=== PATIENT | male | born 1965 | race Caucasian/White ===

== ENCOUNTER → 2017-05-28 | Outpatient (CLI) | payer BC | END | disposition home or self-care (01) | LOC: CDC 10:21 | DX: Z01.810 Encounter for preprocedural cardiovascular examination (principal); M25.562 Pain in left knee; M94.262 Chondromalacia, left knee; S83.232A Complex tear of medial meniscus, current injury, left knee, initial encounter; I10 Essential (primary) hypertension; R94.31 Abnormal electrocardiogram [ECG] [EKG] | CPT/HCPCS: 93000 ==

== ENCOUNTER 2017-08-03 15:45 | Emergency (ER) | payer BC ==
[~2017-08-03] VITALS: Ht 188 cm; Wt 80.4 kg
[2017-08-03 16:09] LABS: HEMATOCRIT 31.1 % (38.0-50.0); HEMOGLOBIN 9.7 G/DL (12.5-16.6); MCH 24.7 PG (29.0-34.0); MCHC 31.2 G/DL (30.0-36.0); MCV 79.1 FL (86-99); PLATELET COUNT 388 K/uL (156-360); RBC DIS.WIDTH-CV 14.6 % (11.8-14.6); RBC DIS.WIDTH-SD 42.4 % (39-53); RED BLOOD COUNT 3.93 M/uL (4.00-5.50); WHITE BLOOD COUNT 11.5 K/uL (4.1-10.2)
[2017-08-03 16:21] LABS: ALBUMIN 3.3 g/dL (3.2-4.8); CHLORIDE 102 mEq/L (99-109); POTASSIUM 4.1 mEq/L (3.7-5.4); SODIUM 137 mEq/L (136-147)
[2017-08-03 16:24] LABS: GLUCOSE 105 mg/dL (70-99); TOTAL PROTEIN 6.8 g/dL (6.4-8.3)
[2017-08-03 16:26] LABS: TOTAL BILIRUBIN 0.3 mg/dL (0.0-1.0)
[2017-08-03 16:27] LABS: ALKALINE PHOSPHATASE 83 IU/L (3-129); CREATININE 0.8 mg/dL (0.6-1.3); GFR ESTIMATE (CALCULATED) > 59 mL/min/ (58.99-99999)
[2017-08-03] MEDS ORDERED: TYLENOL REGULA325 MG PO (16:27)
[2017-08-03 16:28] LABS: UREA NITROGEN (BUN) 9 mg/dL (9-23)
[2017-08-03 16:29] LABS: AST (GOT) 25 IU/L (2-34)
[2017-08-03 16:30] LABS: ALT (GPT) 33 IU/L (3-49)
[2017-08-03 17:02] LABS: APPEARANCE CLEAR ((CLEAR)); BILIRUBIN NEGATIVE; BLOOD NEGATIVE; COLOR STRAW ((YELLOW)); GLUCOSE (STRIP) NEGATIVE; KETONES 5; LEUKOCYTES NEGATIVE; NITRITE NEGATIVE; PROTEIN (STRIP) NEGATIVE; SPECIFIC GRAVITY 1.005 (1.000-1.030); UCUL ADDED? NO; UROBILINOGEN 0.2 MG/DL (0.2-1.0)
[2017-08-03] MEDS ORDERED: PERCOCET 5/31 TABLET PO (18:24)
[2017-08-03 18:51] VITALS: BP 133/76
== END 2017-08-03 19:17 | disposition home or self-care (01) ==
LOC: EME 15:45
DX: K31.89 Other diseases of stomach and duodenum (principal); D64.9 Anemia, unspecified; I10 Essential (primary) hypertension; Z87.891 Personal history of nicotine dependence
CPT/HCPCS: 74177; 80053; 81003; 85027; 99281; 99284; J7030

== ENCOUNTER → 2017-08-12 | Outpatient (CLI) | payer BC ==
[~2017-08-12] VITALS: Ht 185.4 cm; Wt 77.1 kg
[~2017-08-12] MED LIST: NORVASC5 MG PO; PERCOCET 5/31 TABLET PO; PROTONIX40 MG PO; TYLENOL EXTRA500 MG PO; TYLENOL REGULA325 MG PO; ZOFRAN4 MG PO
== END | disposition home or self-care (01) ==
LOC: AMB 12:56
DX: D37.9 Neoplasm of uncertain behavior of digestive organ, unspecified (principal); I10 Essential (primary) hypertension; K21.9 Gastro-esophageal reflux disease without esophagitis; D50.9 Iron deficiency anemia, unspecified; Z87.891 Personal history of nicotine dependence
CPT/HCPCS: 88305; J1100; J2250; J2710

== ENCOUNTER 2017-08-19 10:02 | Inpatient (IN) | payer BC ==
[~2017-08-19] VITALS: Ht 185.4 cm; Wt 77.4 kg
[2017-08-19 10:41] LABS: HEMATOCRIT 30.8 % (38.0-50.0); HEMOGLOBIN 9.7 G/DL (12.5-16.6); MCH 24.2 PG (29.0-34.0); MCHC 31.5 G/DL (30.0-36.0); MCV 76.8 FL (86-99); PLATELET COUNT 456 K/uL (156-360); RBC DIS.WIDTH-CV 15.8 % (11.8-14.6); RBC DIS.WIDTH-SD 43.4 % (39-53); RED BLOOD COUNT 4.01 M/uL (4.00-5.50); WHITE BLOOD COUNT 10.8 K/uL (4.1-10.2)
[2017-08-19 10:52] LABS: ALBUMIN 3.4 g/dL (3.2-4.8); CHLORIDE 98 mEq/L (99-109); POTASSIUM 4.5 mEq/L (3.7-5.4); SODIUM 135 mEq/L (136-147)
[2017-08-19 10:55] LABS: GLUCOSE 98 mg/dL (70-99); TOTAL PROTEIN 7.1 g/dL (6.4-8.3)
[2017-08-19 10:56] LABS: TOTAL BILIRUBIN 0.5 mg/dL (0.0-1.0)
[2017-08-19 10:58] LABS: ALKALINE PHOSPHATASE 100 IU/L (3-129); CREATININE 0.9 mg/dL (0.6-1.3); GFR ESTIMATE (CALCULATED) > 59 mL/min/ (58.99-99999)
[2017-08-19 10:59] LABS: UREA NITROGEN (BUN) 14 mg/dL (9-23)
[2017-08-19 11:00] LABS: AST (GOT) 21 IU/L (2-34)
[2017-08-19 11:01] LABS: ALT (GPT) 40 IU/L (3-49)
[2017-08-19 14:12] LABS: TROP-I INTERPRETATION NEGATIVE; TROPONIN-I < 0.01 ng/mL (0.0-0.30)
[2017-08-19 14:44] LABS: APPEARANCE SL.HAZY ((CLEAR)); BILIRUBIN NEGATIVE; BLOOD NEGATIVE; COLOR AMBER ((YELLOW)); GLUCOSE (STRIP) NEGATIVE; KETONES 80; LEUKOCYTES NEGATIVE; NITRITE NEGATIVE; PROTEIN (STRIP) 30; SPECIFIC GRAVITY 1.027 (1.000-1.030)
[2017-08-19 15:09] LABS: BACTERIA RARE /HPF; EPITHELIAL CELLS RARE /HPF; MUCUS 2+ /LPF; RED BLOOD CELLS NONE SEEN /HPF (0-5); UCUL ADDED? NO; WHITE BLOOD CELLS NONE SEEN /HPF (0-5)
[2017-08-19] MEDS ORDERED: COMPAZINE10 MG PO (17:22)
[2017-08-19] MEDS ORDERED: ENDOCET 5-3251 EACH PO (17:23)
[2017-08-19] MEDS ORDERED: PANTOPRAZOLE SO40 MG PO (17:24)
[2017-08-19 20:56] LABS: TROP-I INTERPRETATION NEGATIVE; TROPONIN-I < 0.01 ng/mL (0.0-0.30)
[2017-08-19 21:25] VITALS: BP 127/71
[2017-08-19 23:31] VITALS: BP 131/68
[2017-08-20 02:16] LABS: TROP-I INTERPRETATION NEGATIVE; TROPONIN-I < 0.01 ng/mL (0.0-0.30)
[2017-08-20 03:44] VITALS: BP 120/65
[2017-08-20 07:25] VITALS: BP 115/67
[2017-08-20 07:32] LABS: BASOPHIL (%) 0.6 % (0-1); EOSINOPHIL (%) 1.8 % (0-5); EOSINOPHIL COUNT 0.1 K/uL (0-0.3); HEMATOCRIT 26.2 % (38.0-50.0); IMMATURE GRANULOCYTE (%) 0.5 % (0.0-0.7); LYMPHOCYTE (%) 25.5 % (15-42); LYMPHOCYTE COUNT 1.7 K/uL (1.0-2.8); MCH 23.5 PG (29.0-34.0); MCHC 30.5 G/DL (30.0-36.0); MCV 77.1 FL (86-99); MONOCYTE COUNT 1.3 K/uL (0-0.8); NEUTROPHIL (%) 52.6 % (45-76); NEUTROPHIL COUNT 3.5 K/uL (1.8-6.4); PLATELET COUNT 360 K/uL (156-360); RBC DIS.WIDTH-CV 15.9 % (11.8-14.6); RBC DIS.WIDTH-SD 43.8 % (39-53); WHITE BLOOD COUNT 6.6 K/uL (4.1-10.2)
[2017-08-20 08:06] LABS: CHLORIDE 99 MEQ/L (99-109); CREATININE 0.8 MG/DL (0.6-1.3); GFR ESTIMATE (CALCULATED) > 59 mL/min/ (58.99-99999); GLUCOSE 99 mg/dL (70-99); POTASSIUM 5.1 MEQ/L (3.7-5.4); SODIUM 136 MEQ/L (136-147); UREA NITROGEN (BUN) 11 mg/dL (9-23)
[2017-08-20 11:13] VITALS: BP 118/67
[2017-08-20 16:21] VITALS: BP 121/72
[2017-08-20 20:19] VITALS: BP 132/76
[2017-08-20 23:26] VITALS: BP 110/63
[2017-08-21 03:36] VITALS: BP 112/64
[2017-08-21 07:12] LABS: BASOPHIL (%) 0.4 % (0-1); EOSINOPHIL (%) 3.2 % (0-5); EOSINOPHIL COUNT 0.2 K/uL (0-0.3); HEMATOCRIT 25.5 % (38.0-50.0); HEMOGLOBIN 7.9 G/DL (12.5-16.6); IMMATURE GRANULOCYTE (%) 0.4 % (0.0-0.7); LYMPHOCYTE (%) 30.5 % (15-42); LYMPHOCYTE COUNT 2.2 K/uL (1.0-2.8); MCH 23.9 PG (29.0-34.0); MONOCYTE (%) 17.7 % (3-12); MONOCYTE COUNT 1.3 K/uL (0-0.8); NEUTROPHIL (%) 47.8 % (45-76); NEUTROPHIL COUNT 3.4 K/uL (1.8-6.4); PLATELET COUNT 309 K/uL (156-360); RBC DIS.WIDTH-CV 15.7 % (11.8-14.6); RBC DIS.WIDTH-SD 43.7 % (39-53); RED BLOOD COUNT 3.31 M/uL (4.00-5.50); WHITE BLOOD COUNT 7.2 K/uL (4.1-10.2)
[2017-08-21 07:48] LABS: CHLORIDE 99 MEQ/L (99-109); CREATININE 0.8 MG/DL (0.6-1.3); GFR ESTIMATE (CALCULATED) > 59 mL/min/ (58.99-99999); GLUCOSE 93 mg/dL (70-99); MAGNESIUM 2.1 mg/dl (1.3-2.7); PHOSPHORUS 3.4 mg/dL (2.5-4.9); POTASSIUM 4.2 MEQ/L (3.7-5.4); SODIUM 136 MEQ/L (136-147); UREA NITROGEN (BUN) 8 mg/dL (9-23)
[2017-08-21 08:31] VITALS: BP 139/72
[2017-08-21 15:45] VITALS: BP 128/70
[2017-08-21 19:20] VITALS: BP 138/77
[2017-08-21 23:20] VITALS: BP 118/64
[2017-08-22 05:38] LABS: BASOPHIL (%) 0.4 % (0-1); EOSINOPHIL (%) 5.1 % (0-5); EOSINOPHIL COUNT 0.4 K/uL (0-0.3); HEMATOCRIT 25.1 % (38.0-50.0); HEMOGLOBIN 7.5 G/DL (12.5-16.6); IMMATURE GRANULOCYTE (%) 0.3 % (0.0-0.7); LYMPHOCYTE (%) 32.2 % (15-42); LYMPHOCYTE COUNT 2.4 K/uL (1.0-2.8); MCHC 29.9 G/DL (30.0-36.0); MONOCYTE (%) 12.4 % (3-12); MONOCYTE COUNT 0.9 K/uL (0-0.8); NEUTROPHIL (%) 49.6 % (45-76); NEUTROPHIL COUNT 3.8 K/uL (1.8-6.4); PLATELET COUNT 322 K/uL (156-360); RBC DIS.WIDTH-CV 15.7 % (11.8-14.6); RBC DIS.WIDTH-SD 43.2 % (39-53); RED BLOOD COUNT 3.26 M/uL (4.00-5.50); WHITE BLOOD COUNT 7.6 K/uL (4.1-10.2)
[2017-08-22 06:03] LABS: CHLORIDE 97 MEQ/L (99-109); CREATININE 0.8 MG/DL (0.6-1.3); GFR ESTIMATE (CALCULATED) > 59 mL/min/ (58.99-99999); GLUCOSE 89 mg/dL (70-99); MAGNESIUM 2.1 mg/dl (1.3-2.7); PHOSPHORUS 3.5 mg/dL (2.5-4.9); SODIUM 136 MEQ/L (136-147); UREA NITROGEN (BUN) 8 mg/dL (9-23)
[2017-08-22 07:03] VITALS: BP 107/65
[2017-08-22] MEDS ORDERED: DOCUSATE SODIU100 MG PO (13:37)
[2017-08-22] MEDS ORDERED: GLEEVEC400 MG PO (13:40)
[2017-08-22] MEDS ORDERED: FEOSOL325 MG PO (13:47)
== END 2017-08-22 15:43 | disposition short-term general hospital (02) | DRG 543 ==
LOC: EME 10:02 → 2EAST 18:43 → EDOF 18:43 → ENRESERV 19:01 → 2EAST 21:11
PROVIDERS: Hospitalist; Physician Assistant; Student in an Organized Health Care Education/Training Program
DX: C49.A0 Gastrointestinal stromal tumor, unspecified site (principal); C16.9 Malignant neoplasm of stomach, unspecified; E46 Unspecified protein-calorie malnutrition; R13.10 Dysphagia, unspecified; C49.9 Malignant neoplasm of connective and soft tissue, unspecified; R62.7 Adult failure to thrive; Z68.22 Body mass index [BMI] 22.0-22.9, adult; E78.5 Hyperlipidemia, unspecified; I10 Essential (primary) hypertension; E86.0 Dehydration; R00.0 Tachycardia, unspecified; D50.9 Iron deficiency anemia, unspecified; Z82.0 Family history of epilepsy and other diseases of the nervous system; Z82.41 Family history of sudden cardiac death; Z82.5 Family history of asthma and other chronic lower respiratory diseases
CPT/HCPCS: 71275; 74022; 80048; 80053; 81003; 83735; 84100; 84134; 84484; 85025; 85027; 85379; 87040; 87502; 93005; 99281; 99285; C9113; J1756; J2405; J7030; J7050; S0028